=== PATIENT | female | born 1955 | race Caucasian/White ===

== ENCOUNTER 2020-04-28 17:32 | Emergency (ER) | payer MEDICARE, MEDICAID ==
--- NOTE | 2020-04-28 17:38 | EDM.PDOC ---
ED HPI GENERAL MEDICAL PROBLEM - General Chief Complaint: Upper Extremity Injury/Pain Stated Complaint: swollen right hand Time Seen by Provider: 04/28/20 17:34 Source of Information: Reports: Patient History Limitations: Reports: No Limitations - History of Present Illness INITIAL COMMENTS - FREE TEXT/NARRATIVE: Transfer from [place]; patient was seen by TOLU Anguiano who was concerned for RUE DVT vs cellulitis, but their facility does not have US capabilities. Patient is 64F PMHx DM2 presenting with RUE swelling/redness/pain. Most evidence in her hand. No fevers or systemic symptoms. Had labs done in [place] that were grossly unremarkable. R hand Pain Score (Numeric/FACES): 8 - Related Data Allergies Allergy/AdvReac Type Severity Reaction Status Date / Time unknown antibiotic Allergy Itching Uncoded 04/28/20 17:56 Review of Systems - Review of Systems Review Of Systems: Comprehensive ROS is negative, except as noted in HPI. ED EXAM, GENERAL - Physical Exam Exam: See Below Exam Limited By: No Limitations General Appearance: Alert, WD/WN, No Apparent Distress Ears: Normal External Exam Nose: Normal Inspection Throat/Mouth: Normal Voice, No Airway Compromise Head: Atraumatic, Normocephalic Neck: Normal Inspection, Non-Tender Respiratory/Chest: No Respiratory Distress, No Accessory Muscle Use Cardiovascular: Normal Peripheral Pulses Extremities: Normal Inspection Neurological: Alert Psychiatric: Normal Affect, Normal Mood Skin Exam: Warm, Dry, Intact, Normal Color Course - Vital Signs Last Recorded V/S: Last Vital Signs Temp 96.3 F L 04/28/20 17:49 Pulse 84 04/28/20 17:49 Resp 20 04/28/20 17:49 BP 161/106 H 04/28/20 17:49 Pulse Ox 95 04/28/20 17:49 - Orders/Labs/Meds Orders: Active Orders 24 hr Category Date Time Status Venous Doppler Upr Ext Rt [US] Stat Exams 04/28/20 17:35 Ordered Labs: Laboratory Tests 04/28/20 04/28/20 04/28/20 Range/Units 18:12 18:13 18:13 WBC 8.49 (4.0-11.0) K/uL RBC 4.86 (4.30-5.90) M/uL Hgb 14.9 (12.0-16.0) g/dL Hct 46.3 H (36.0-46.0) % MCV 95.3 (80.0-98.0) fL MCH 30.7 (27.0-32.0) pg MCHC 32.2 (31.0-37.0) g/dL RDW Std Deviation 47.6 (28.0-62.0) fl RDW Coeff of Ana 14 (11.0-15.0) % Plt Count 208 (150-400) K/uL MPV 10.00 (7.40-12.00) fL Neut % (Auto) 53.6 (48.0-80.0) % Lymph % (Auto) 34.2 (16.0-40.0) % [place] % (Auto) 8.1 (0.0-15.0) % Eos % (Auto) 3.7 (0.0-7.0) % Baso % (Auto) 0.4 (0.0-1.5) % Neut # (Auto) 4.6 (1.4-5.7) K/uL Lymph # (Auto) 2.9 H (0.6-2.4) K/uL [place] # (Auto) 0.7 (0.0-0.8) K/uL Eos # (Auto) 0.3 (0.0-0.7) K/uL Baso # (Auto) 0.0 (0.0-0.1) K/uL Nucleated RBC % 0.0 /100WBC Nucleated RBCs # 0 K/uL ESR 5 (0-29) mm/hr INR APTT (18.6-31.3) SEC Sodium (136-145) mmol/L Potassium (3.5-5.1) mmol/L Chloride (98-107) mmol/L Carbon Dioxide (21.0-32.0) mmol/L BUN (7.0-18.0) mg/dL Creatinine (0.6-1.0) mg/dL Est Cr Clr Drug Dosing mL/min Estimated GFR (MDRD) ml/min Glucose (74-106) mg/dL POC Glucose 108 (60-110) mg/dL Calcium (8.5-10.1) mg/dL C-Reactive Protein (0.00-0.90) mg/dL 04/28/20 04/28/20 Range/Units 18:13 18:13 WBC (4.0-11.0) K/uL RBC (4.30-5.90) M/uL Hgb (12.0-16.0) g/dL Hct (36.0-46.0) % MCV (80.0-98.0) fL MCH (27.0-32.0) pg MCHC (31.0-37.0) g/dL RDW Std Deviation (28.0-62.0) fl RDW Coeff of Ana (11.0-15.0) % Plt Count (150-400) K/uL MPV (7.40-12.00) fL Neut % (Auto) (48.0-80.0) % Lymph % (Auto) (16.0-40.0) % [place] % (Auto) (0.0-15.0) % Eos % (Auto) (0.0-7.0) % Baso % (Auto) (0.0-1.5) % Neut # (Auto) (1.4-5.7) K/uL Lymph # (Auto) (0.6-2.4) K/uL [place] # (Auto) (0.0-0.8) K/uL Eos # (Auto) (0.0-0.7) K/uL Baso # (Auto) (0.0-0.1) K/uL Nucleated RBC % /100WBC Nucleated RBCs # K/uL ESR (0-29) mm/hr INR 1.01 APTT 25.4 (18.6-31.3) SEC Sodium 137 (136-145) mmol/L Potassium 4.2 (3.5-5.1) mmol/L Chloride 97 L (98-107) mmol/L Carbon Dioxide 30.9 (21.0-32.0) mmol/L BUN 15 (7.0-18.0) mg/dL Creatinine 1.3 H (0.6-1.0) mg/dL Est Cr Clr Drug Dosing 45.09 mL/min Estimated GFR (MDRD) 41.1 ml/min Glucose 108 H (74-106) mg/dL POC Glucose (60-110) mg/dL Calcium 9.5 (8.5-10.1) mg/dL C-Reactive Protein 0.60 (0.00-0.90) mg/dL - Re-Assessments/Exams Free Text/Narrative Re-Assessment/Exam: 04/28/20 18:49 Patient care transitioned to Dr. Goel pending reassessment and US imaging results. Departure - Departure Time of Disposition: 18:50 Disposition: Still A Patient 30 Condition: Fair Clinical Impression: Swelling of arm - Discharge Information Referrals: Bernie Saldana PA-C [Primary Care Provider] - Forms: ED Department Discharge, ED Return to Work/School Form Sepsis Event Note (ED) - Focused Exam Vital Signs: Vital Signs Temp Pulse Resp BP Pulse Ox 04/28/20 17:49 96.3 F L 84 20 161/106 H 95 - My Orders Last 24 Hours: My Active Orders 04/28/20 17:35 Venous Doppler Upr Ext Rt [US] Stat - Assessment/Plan Last 24 Hours: My Active Orders 04/28/20 17:35 Venous Doppler Upr Ext Rt [US] Stat
[2020-04-28 18:38] LABS: CARBON DIOXIDE,CO2 30.9 mmol/L (21.0-32.0); POTASSIUM,K 4.2 mmol/L (3.5-5.1)
--- NOTE | 2020-04-28 19:15 | US ---
HISTORY: Right upper extremity pain and swelling. TECHNIQUE: Venous system of right upper extremity was examined using grayscale, color and doppler techniques. Compression was assessed where able to be assessed. COMPARISON: No prior. FINDINGS: Right internal jugular, subclavian, axillary, brachial, basilic, cephalic, radial and ulnar veins are patent. IMPRESSION: No venous thrombosis within the right upper extremity. Dictated by Cesar Hansen MD @ 04/28/2020 7:13:01 PM Dictated by: Cesar Hansen MD @ 04/28/2020 19:13:06 (Electronically Signed)
[2020-04-28] MEDS ORDERED: Ketorolac 15 MG/ML SDV IM ONE (19:27)
[2020-04-28] MEDS ORDERED: Doxycycline 100 MG Cap PO STA (19:30)
--- NOTE | 2020-04-28 19:36 | PCM.SN.2 ---
- Free Text/Narrative Note: Patient was signed out to me by Dr. Samayoa pending right upper extremity ultrasound at 7 PM. HPI: 64-year-old woman with a past medical history of multiple sclerosis, chronic pancreatitis, and GERD who presents to emergency department from [place] for right upper extremity swelling and pain. Per the patient she states that yesterday she was started sharp pain in her hand with radiation to her fingers rated 10 out of 10. She states the pain is intermittent and worse with movement. She denies any relieving factors. She states that she was soaking her hand in hot water and applied topical lidocaine. She states that the topical lidocaine did help slightly however the hot water did not. She denies any injury to her right hand. She states this all started after she was scrubbing very hard her dishes. She denies any history of cancer, night sweats, weight loss. She denies any chest pain or shortness of breath. Constitutional: Denies fever, chills. Eyes: Denies eye pain Ears, Nose, Mouth, & Throat: Denies earache Cardiovascular: Denies chest pain Respiratory: Denies shortness of breath Gastrointestinal: Denies Nausea, vomiting, diarrhea, hematochezia. Genitourinary: Denies hematuria Skin: Positive for right hand rash and swelling Neurological: Denies blurred vision Psychiatric: Denies depression On my examination there is swelling isolated to the right hand with some overlying erythema. The entire hand is tender. She is able to move all of her fingers however limited secondary to pain. She does not have any evidence of flexor tenosynovitis on examination. The swelling and erythema does not extend beyond the hand. The patient has full range of motion of the right shoulder and right elbow. The radiological images were viewed by myself along with reading the report from the radiologist. Right upper extremity ultrasound does not reveal any evidence of venous thrombosis. After ultrasound I did provide the patient with Toradol IM for pain relief and applied an ice pack. I did discuss with her that I will be providing her with doxycycline 100 mg by mouth here in the emergency department and that she need to take it twice a day for the next 7 days. She was amenable to this plan had no further questions. I did inform her that if she had worsening redness tracking up her arm, worsened swelling or worsening of the decrease of range of motion of her right hand that she need to follow-up in the emergency department as soon as possible. She did express understanding. DISPOSITION: The patient was discharged home in stable condition. The patient will follow up with primary care physician within 2 to 3 days CONDITION: Fair PROCEDURES: None FINAL IMPRESSION(S)/DIAGNOSES: 1. Acute right hand cellulitis
== END 2020-04-28 20:24 | disposition home or self-care (01) ==
LOC: MW.ED 17:32
DX: R22.31 Localized swelling, mass and lump, right upper limb (principal); E11.9 Type 2 diabetes mellitus without complications; Z88.1 Allergy status to other antibiotic agents
CPT/HCPCS: 36415; 80048; 82962; 85025; 85610; 85652; 85730; 86140; 93971; 96372; 99284; A9270; J1885; 99282